=== PATIENT | female | born 1995 | race Hispanic/Latino ===

== ENCOUNTER 2017-05-06 00:50 | Emergency (ER) | payer OTHER ==
[~2017-05-06] VITALS: Ht 165.1 cm; Wt 73.9 kg
[~2017-05-06 00:50] MED LIST: BACTRIM DS TAB1 EACH PO; ULTRAM50 MG PO
[2017-05-06] MEDS ORDERED: CEPHALEXIN500 MG PO (03:08)
== END 2017-05-06 03:21 | disposition home or self-care (01) ==
LOC: ED 00:50
DX: N39.0 Urinary tract infection, site not specified (principal); J45.909 Unspecified asthma, uncomplicated
CPT/HCPCS: 80053; 81001; 83690; 84703; 85025; 87077; 87088; 87186; 96361; 96374; 99283; J0696; J7030